=== PATIENT | female | born 1950 | race Caucasian/White ===

== ENCOUNTER 2018-10-26 18:42 | Inpatient (IN) | payer MEDICARE, OTHER ==
[2018-10-26 19:42] LABS: ADD MAN DIFF? NO
[2018-10-26 19:44] LABS: WHITE BLOOD COUNT 11.4 10^3/ul (4.8-10.8)
[2018-10-26 19:44] LABS: BASOPHILS % 0.2 % (0.0-2.0); EOSINOPHILS # 0.2 10^3/ul (0.0-0.5); EOSINOPHILS % 1.3 % (0.0-7.0); HEMATOCRIT 39.4 % (37.0-47.0); LYMPHOCYTES # 2.3 10^3/ul (0.8-2.9); LYMPHOCYTES % 20.4 % (15.0-51.0); MEAN CORPUSCULAR HEMOGLOBIN 28.6 pg (29.0-33.0); MEAN CORPUSCULAR VOLUME 86.6 fl (82.0-101.0); MEAN PLATELET VOLUME 8.8 fl (7.4-10.4); MONOCYTE # 1.1 10^3/ul (0.3-0.9); MONOCYTES % 9.6 % (0.0-11.0); NEUTROPHIL # 7.7 10^3/ul (1.6-7.5); NEUTROPHILS % 68.1 % (39.0-77.0); PLATELET COUNT 292 10^3/UL (140-415); RED BLOOD COUNT 4.55 10^6/ul (4.20-5.40); RED CELL DISTRIBUTION WIDTH 14.6 % (11.5-14.5)
[2018-10-26 19:47] LABS: ADD UMIC YES; UR ASCORBIC ACID NEGATIVE (NEGATIVE); UR BILIRUBIN (Dip) NEGATIVE (NEGATIVE); UR BLOOD (Dip) 1+ mg/dL (NEGATIVE); UR CLARITY CLEAR (CLEAR); UR COLOR STRAW (YELLOW); UR GLUCOSE (Dip) NEGATIVE (NEGATIVE); UR KETONES (Dip) NEGATIVE (NEGATIVE); UR LEUKOCYTE ESTERASE (Dip) 2+ Leu/ul (NEGATIVE); UR NITRITE (Dip) NEGATIVE (NEGATIVE); UR RBC 2 /HPF (0-5); UR SPECIFIC GRAVITY (Dip) 1.004 (1.003-1.030); UR SQUAMOUS EPITHELIAL CELL FEW /HPF (FEW); UR TOTAL PROTEIN (Dip) NEGATIVE (NEGATIVE); UR UROBILINOGEN (Dip) NEGATIVE (NEGATIVE); UR WBC 12 /HPF (0-5)
[2018-10-26 20:03] LABS: ALANINE AMINOTRANSFERASE 24 IU/L (13-69); ALBUMIN 4.2 g/dl (3.3-4.9); ALBUMIN/GLOBULIN RATIO 1.05; ALKALINE PHOSPHATASE 86 IU/L (42-121); ANION GAP 8 (5-13); ASPARTATE AMINO TRANSFERASE 32 IU/L (15-46); BILIRUBIN,INDIRECT 0.7 mg/dl (0-1.1); BILIRUBIN,TOTAL 0.7 mg/dl (0.2-1.3); BLOOD UREA NITROGEN 11 mg/dl (7-20); CALCIUM 9.1 mg/dl (8.4-10.2); CARBON DIOXIDE 29 mmol/L (21-31); CHLORIDE 102 mmol/L (97-110); CREATININE 0.64 mg/dl (0.44-1.00); Estimated GFR > 60 mL/min (>60); GLUCOSE 106 mg/dl (70-220); LIPASE 55 U/L (23-300); POTASSIUM 3.6 mmol/L (3.5-5.1); SODIUM 139 mmol/L (135-144); TOTAL PROTEIN 8.2 g/dl (6.1-8.1)
[2018-10-26] MEDS: SOD CHLORIDE 0.9% 1,000 ML IV (20:09)
[2018-10-26] MEDS: morphine 4 MG/ML VIAL IV (20:10)
[2018-10-26] MEDS: ONDANSETRON 4 MG INJ IV (20:10)
[2018-10-26] MEDS: AMPICILLIN/SULB 3 GM/NS (PMX) 100 ML IVPB (20:10)
[2018-10-26] MEDS ORDERED: ACETAMINOPHEN 325 MG TAB PO (21:00)
[2018-10-26] MEDS ORDERED: ONDANSETRON 4 MG INJ IV (21:00)
[2018-10-26] MEDS: HYDROmorphONE 2 MG/ML SYG IV (21:14)
[2018-10-27] MEDS: DEXTROSE 5%-0.45% NACL 1,000 ML IV ×6 (01:19→23:47)
[2018-10-27] MEDS ORDERED: ALBUTEROL/IPRATROPIUM (NEB) 3 ML AMP HHN (02:00)
[2018-10-27] MEDS ORDERED: ONDANSETRON 4 MG INJ IV (02:00)
[2018-10-27] MEDS: PIPER-TAZO 3.375 GM IV (PMX) 100 ML IVPB ×3 (05:35→22:28)
[2018-10-27] MEDS: NACL 0.9% 3 ML SYG IV (05:35)
[2018-10-27 06:02] LABS: ADD MAN DIFF? NO
[2018-10-27 06:11] LABS: WHITE BLOOD COUNT 8.7 10^3/ul (4.8-10.8)
[2018-10-27 06:11] LABS: BASOPHILS % 0.2 % (0.0-2.0); EOSINOPHILS # 0.2 10^3/ul (0.0-0.5); EOSINOPHILS % 1.7 % (0.0-7.0); HEMATOCRIT 36.3 % (37.0-47.0); HEMOGLOBIN 11.7 g/dl (12.0-16.0); LYMPHOCYTES % 23.3 % (15.0-51.0); MEAN CORPUSCULAR HEMOGLOBIN 28.6 pg (29.0-33.0); MEAN CORPUSCULAR HGB CONC 32.2 g/dl (32.0-37.0); MEAN CORPUSCULAR VOLUME 88.8 fl (82.0-101.0); MEAN PLATELET VOLUME 8.9 fl (7.4-10.4); MONOCYTE # 0.7 10^3/ul (0.3-0.9); MONOCYTES % 8.2 % (0.0-11.0); NEUTROPHIL # 5.8 10^3/ul (1.6-7.5); NEUTROPHILS % 66.1 % (39.0-77.0); PLATELET COUNT 271 10^3/UL (140-415); RED BLOOD COUNT 4.09 10^6/ul (4.20-5.40); RED CELL DISTRIBUTION WIDTH 14.9 % (11.5-14.5)
[2018-10-27] MEDS: PANTOPRAZOLE (EC) 40 MG TAB PO (06:19)
[2018-10-27 06:36] LABS: ALANINE AMINOTRANSFERASE 18 IU/L (13-69); ALBUMIN 3.5 g/dl (3.3-4.9); ALKALINE PHOSPHATASE 62 IU/L (42-121); ANION GAP 4 (5-13); ASPARTATE AMINO TRANSFERASE 24 IU/L (15-46); BILIRUBIN,INDIRECT 0.7 mg/dl (0-1.1); BILIRUBIN,TOTAL 0.7 mg/dl (0.2-1.3); BLOOD UREA NITROGEN 10 mg/dl (7-20); CALCIUM 8.2 mg/dl (8.4-10.2); CARBON DIOXIDE 31 mmol/L (21-31); CHLORIDE 103 mmol/L (97-110); CREATININE 0.51 mg/dl (0.44-1.00); Estimated GFR > 60 mL/min (>60); GLUCOSE 117 mg/dl (70-220); PHOSPHORUS 2.7 mg/dl (2.5-4.9); POTASSIUM 3.5 mmol/L (3.5-5.1); SODIUM 138 mmol/L (135-144)
[2018-10-27] MEDS: ATENOLOL 50 MG TAB PO (08:22)
[2018-10-27] MEDS: FLUTICASONE 0.05% 16 GM NAS SPRAY NASAL ×2 (08:23→21:00)
[2018-10-27] MEDS: metFORMIN 500 MG TAB PO ×2 (08:23→17:48)
[2018-10-27] MEDS: ATORVASTATIN 40 MG TAB PO (08:23)
[2018-10-27] MEDS ORDERED: NON-FORMULARY/PATIENT OWN MED (Omeprazole* 20 MG) PO (09:00)
[2018-10-27] MEDS: LISINOPRIL 20 MG TAB PO (16:52)
[2018-10-27] MEDS: morphine 2 MG INJ IV (20:34)
[2018-10-28 05:17] LABS: ADD MAN DIFF? NO
[2018-10-28 05:22] LABS: WHITE BLOOD COUNT 9.5 10^3/ul (4.8-10.8)
[2018-10-28 05:22] LABS: BASOPHILS % 0.2 % (0.0-2.0); EOSINOPHILS # 0.2 10^3/ul (0.0-0.5); HEMATOCRIT 38.4 % (37.0-47.0); HEMOGLOBIN 12.3 g/dl (12.0-16.0); LYMPHOCYTES # 2.6 10^3/ul (0.8-2.9); LYMPHOCYTES % 27.3 % (15.0-51.0); MEAN CORPUSCULAR HEMOGLOBIN 28.2 pg (29.0-33.0); MEAN CORPUSCULAR VOLUME 88.1 fl (82.0-101.0); MEAN PLATELET VOLUME 8.8 fl (7.4-10.4); MONOCYTES % 10.4 % (0.0-11.0); NEUTROPHIL # 5.7 10^3/ul (1.6-7.5); NEUTROPHILS % 59.7 % (39.0-77.0); PLATELET COUNT 264 10^3/UL (140-415); RED BLOOD COUNT 4.36 10^6/ul (4.20-5.40); RED CELL DISTRIBUTION WIDTH 14.6 % (11.5-14.5)
[2018-10-28] MEDS: PIPER-TAZO 3.375 GM IV (PMX) 100 ML IVPB ×3 (05:53→21:13)
[2018-10-28] MEDS: PANTOPRAZOLE (EC) 40 MG TAB PO (05:53)
[2018-10-28 06:02] LABS: ANION GAP 6 (5-13); BLOOD UREA NITROGEN 8 mg/dl (7-20); CALCIUM 8.4 mg/dl (8.4-10.2); CARBON DIOXIDE 32 mmol/L (21-31); CHLORIDE 101 mmol/L (97-110); CREATININE 0.66 mg/dl (0.44-1.00); Estimated GFR > 60 mL/min (>60); GLUCOSE 109 mg/dl (70-220); PHOSPHORUS 3.2 mg/dl (2.5-4.9); POTASSIUM 3.3 mmol/L (3.5-5.1); SODIUM 139 mmol/L (135-144)
[2018-10-28] MEDS: DEXTROSE 5%-0.45% NACL 1,000 ML IV ×4 (07:59→17:59)
[2018-10-28] MEDS: FLUTICASONE 0.05% 16 GM NAS SPRAY NASAL ×2 (08:23→21:00)
[2018-10-28] MEDS: ATORVASTATIN 40 MG TAB PO (08:23)
[2018-10-28] MEDS: ENOXAPARIN 40 MG/0.4 ML SYG SC (08:24)
[2018-10-28] MEDS: metFORMIN 500 MG TAB PO ×2 (08:27→17:55)
[2018-10-28] MEDS: LISINOPRIL 20 MG TAB PO ×2 (08:27→21:13)
[2018-10-28] MEDS: morphine 2 MG INJ IV (15:41)
[2018-10-28] MEDS: POTASSIUM CHLORIDE 100 ML IVPB (16:36)
[2018-10-28] MEDS: POTASSIUM CHLORIDE (SR) 10 MEQ TAB PO (21:11)
[2018-10-28] MEDS: HYDROCODONE/APAP (5/325) TAB PO (21:59)
[2018-10-29] MEDS: DEXTROSE 5%-0.45% NACL 1,000 ML IV ×3 (00:11→21:37)
[2018-10-29] MEDS: HYDROCODONE/APAP (5/325) TAB PO ×3 (02:48→19:36)
[2018-10-29 05:18] LABS: ADD MAN DIFF? NO
[2018-10-29 05:35] LABS: BASOPHILS % 0.2 % (0.0-2.0); EOSINOPHILS # 0.2 10^3/ul (0.0-0.5); EOSINOPHILS % 2.1 % (0.0-7.0); HEMATOCRIT 37.7 % (37.0-47.0); HEMOGLOBIN 12.4 g/dl (12.0-16.0); LYMPHOCYTES # 2.6 10^3/ul (0.8-2.9); LYMPHOCYTES % 25.7 % (15.0-51.0); MEAN CORPUSCULAR HEMOGLOBIN 28.6 pg (29.0-33.0); MEAN CORPUSCULAR HGB CONC 32.9 g/dl (32.0-37.0); MEAN CORPUSCULAR VOLUME 86.9 fl (82.0-101.0); MEAN PLATELET VOLUME 8.8 fl (7.4-10.4); MONOCYTE # 0.9 10^3/ul (0.3-0.9); MONOCYTES % 8.7 % (0.0-11.0); NEUTROPHIL # 6.3 10^3/ul (1.6-7.5); NEUTROPHILS % 62.9 % (39.0-77.0); PLATELET COUNT 263 10^3/UL (140-415); RED BLOOD COUNT 4.34 10^6/ul (4.20-5.40); RED CELL DISTRIBUTION WIDTH 14.3 % (11.5-14.5)
[2018-10-29 05:55] LABS: ALANINE AMINOTRANSFERASE 20 IU/L (13-69); ALBUMIN 3.5 g/dl (3.3-4.9); ALBUMIN/GLOBULIN RATIO 1.02; ALKALINE PHOSPHATASE 73 IU/L (42-121); AMYLASE 95 U/L (11-123); ANION GAP 5 (5-13); ASPARTATE AMINO TRANSFERASE 21 IU/L (15-46); BILIRUBIN,INDIRECT 0.9 mg/dl (0-1.1); BILIRUBIN,TOTAL 0.9 mg/dl (0.2-1.3); BLOOD UREA NITROGEN 7 mg/dl (7-20); CALCIUM 8.6 mg/dl (8.4-10.2); CARBON DIOXIDE 29 mmol/L (21-31); CHLORIDE 104 mmol/L (97-110); CREATININE 0.55 mg/dl (0.44-1.00); Estimated GFR > 60 mL/min (>60); GLUCOSE 108 mg/dl (70-220); LIPASE 56 U/L (23-300); POTASSIUM 3.8 mmol/L (3.5-5.1); SODIUM 138 mmol/L (135-144); TOTAL PROTEIN 6.9 g/dl (6.1-8.1)
[2018-10-29] MEDS: PIPER-TAZO 3.375 GM IV (PMX) 100 ML IVPB ×3 (06:24→21:36)
[2018-10-29] MEDS: PANTOPRAZOLE (EC) 40 MG TAB PO (06:24)
[2018-10-29] MEDS: ATORVASTATIN 40 MG TAB PO (08:23)
[2018-10-29] MEDS: LISINOPRIL 20 MG TAB PO ×3 (08:24→20:59)
[2018-10-29] MEDS: POTASSIUM CHLORIDE (SR) 10 MEQ TAB PO (08:26)
[2018-10-29] MEDS: ENOXAPARIN 40 MG/0.4 ML SYG SC (08:27)
[2018-10-29] MEDS: metFORMIN 500 MG TAB PO ×2 (08:32→17:27)
[2018-10-29] MEDS: POTASSIUM CHLORIDE (SR) 20 MEQ TAB PO (10:24)
[2018-10-29] MEDS: FLUTICASONE 0.05% 16 GM NAS SPRAY NASAL ×2 (10:38→20:58)
[2018-10-29] MEDS: morphine 2 MG INJ IV (12:51)
[2018-10-29] MEDS: LORAZEPAM 2 MG INJ IV (14:00)
[2018-10-30 04:53] LABS: ADD MAN DIFF? NO
[2018-10-30 04:59] LABS: BASOPHILS % 0.3 % (0.0-2.0); EOSINOPHILS # 0.2 10^3/ul (0.0-0.5); EOSINOPHILS % 2.6 % (0.0-7.0); HEMATOCRIT 39.1 % (37.0-47.0); HEMOGLOBIN 12.9 g/dl (12.0-16.0); LYMPHOCYTES # 1.8 10^3/ul (0.8-2.9); LYMPHOCYTES % 19.8 % (15.0-51.0); MEAN CORPUSCULAR HEMOGLOBIN 28.5 pg (29.0-33.0); MEAN CORPUSCULAR VOLUME 86.5 fl (82.0-101.0); MEAN PLATELET VOLUME 8.6 fl (7.4-10.4); MONOCYTE # 0.7 10^3/ul (0.3-0.9); MONOCYTES % 7.8 % (0.0-11.0); NEUTROPHIL # 6.4 10^3/ul (1.6-7.5); PLATELET COUNT 275 10^3/UL (140-415); RED BLOOD COUNT 4.52 10^6/ul (4.20-5.40); RED CELL DISTRIBUTION WIDTH 14.4 % (11.5-14.5)
[2018-10-30 04:59] LABS: WHITE BLOOD COUNT 9.3 10^3/ul (4.8-10.8)
[2018-10-30 05:23] LABS: MAGNESIUM 1.9 mg/dl (1.7-2.5)
[2018-10-30 05:31] LABS: ANION GAP 8 (5-13); ASPARTATE AMINO TRANSFERASE 21 IU/L (15-46); BLOOD UREA NITROGEN 7 mg/dl (7-20); CALCIUM 8.9 mg/dl (8.4-10.2); CARBON DIOXIDE 27 mmol/L (21-31); CHLORIDE 103 mmol/L (97-110); CREATININE 0.55 mg/dl (0.44-1.00); Estimated GFR > 60 mL/min (>60); GLUCOSE 114 mg/dl (70-220); POTASSIUM 4.1 mmol/L (3.5-5.1); SODIUM 138 mmol/L (135-144)
[2018-10-30 05:32] LABS: ALANINE AMINOTRANSFERASE 19 IU/L (13-69); ALBUMIN 3.8 g/dl (3.3-4.9); ALBUMIN/GLOBULIN RATIO 1.05; ALKALINE PHOSPHATASE 70 IU/L (42-121); AMYLASE 96 U/L (11-123); BILIRUBIN,INDIRECT 0.8 mg/dl (0-1.1); BILIRUBIN,TOTAL 0.8 mg/dl (0.2-1.3); LIPASE 67 U/L (23-300); TOTAL PROTEIN 7.4 g/dl (6.1-8.1)
[2018-10-30] MEDS: PANTOPRAZOLE (EC) 40 MG TAB PO (05:48)
[2018-10-30] MEDS: PIPER-TAZO 3.375 GM IV (PMX) 100 ML IVPB (05:48)
[2018-10-30 07:43] LABS: ERYTHROCYTE SEDIMENTATION RATE 31 mm/Hr (0-30)
[2018-10-30] MEDS: ATORVASTATIN 40 MG TAB PO (08:31)
[2018-10-30] MEDS: metFORMIN 500 MG TAB PO (08:31)
[2018-10-30] MEDS: LISINOPRIL 20 MG TAB PO (08:32)
[2018-10-30] MEDS: ENOXAPARIN 40 MG/0.4 ML SYG SC (08:33)
[2018-10-30] MEDS: HYDROCODONE/APAP (5/325) TAB PO (08:34)
[2018-10-30] MEDS: FLUTICASONE 0.05% 16 GM NAS SPRAY NASAL (08:38)
[2018-10-30 11:01] LABS: CHOLESTEROL 137 mg/dl (100-200)
[2018-10-30 11:01] LABS: CHOL/HDL RATIO 2.9 RATIO; HDL CHOLESTEROL 46 mg/dl (35-98); LDL CHOLESTEROL,CALCULATED 63 mg/dl; TRIGLYCERIDES 140 mg/dl (0-149)
== END 2018-10-30 10:55 | disposition home or self-care (01) | DRG 392 ==
LOC: MS1 20:45 → E/R 18:42 → MS1 10-27 10:31
DX: K57.30 Diverticulosis of large intestine without perforation or abscess without bleeding (principal); K29.70 Gastritis, unspecified, without bleeding; I16.0 Hypertensive urgency; E11.9 Type 2 diabetes mellitus without complications; I10 Essential (primary) hypertension; E78.5 Hyperlipidemia, unspecified; R10.13 Epigastric pain; E55.9 Vitamin D deficiency, unspecified; E87.6 Hypokalemia; R50.9 Fever, unspecified
CPT/HCPCS: 36415; 74176; 74181; 80048; 80053; 80061; 81001; 82150; 82962; 83036; 83690; 83735; 84100; 85025; 85651; 87045; 87081; 96374; 96375; 99285-25

== ENCOUNTER 2018-11-03 20:50 | Inpatient (IN) | payer MEDICARE, OTHER ==
[2018-11-03] MEDS: HYDROmorphONE 1 MG/ML SYG IV (21:36)
[2018-11-03] MEDS: ONDANSETRON 4 MG INJ IV ×2 (21:36→23:32)
[2018-11-03] MEDS: SOD CHLORIDE 0.9% 1,000 ML IV (21:36)
[2018-11-03 21:46] LABS: ADD MAN DIFF? NO
[2018-11-03 21:49] LABS: WHITE BLOOD COUNT 8.6 10^3/ul (4.8-10.8)
[2018-11-03 21:49] LABS: BASOPHILS % 0.3 % (0.0-2.0); EOSINOPHILS # 0.1 10^3/ul (0.0-0.5); EOSINOPHILS % 1.6 % (0.0-7.0); HEMATOCRIT 41.1 % (37.0-47.0); HEMOGLOBIN 13.6 g/dl (12.0-16.0); LYMPHOCYTES # 2.3 10^3/ul (0.8-2.9); LYMPHOCYTES % 26.1 % (15.0-51.0); MEAN CORPUSCULAR HEMOGLOBIN 28.8 pg (29.0-33.0); MEAN CORPUSCULAR HGB CONC 33.1 g/dl (32.0-37.0); MEAN CORPUSCULAR VOLUME 86.9 fl (82.0-101.0); MEAN PLATELET VOLUME 8.6 fl (7.4-10.4); MONOCYTE # 0.7 10^3/ul (0.3-0.9); MONOCYTES % 8.3 % (0.0-11.0); NEUTROPHIL # 5.5 10^3/ul (1.6-7.5); NEUTROPHILS % 63.2 % (39.0-77.0); PLATELET COUNT 298 10^3/UL (140-415); RED BLOOD COUNT 4.73 10^6/ul (4.20-5.40); RED CELL DISTRIBUTION WIDTH 14.6 % (11.5-14.5)
[2018-11-03 21:53] LABS: ADD UMIC YES; UR ASCORBIC ACID NEGATIVE (NEGATIVE); UR BILIRUBIN (Dip) NEGATIVE (NEGATIVE); UR BLOOD (Dip) NEGATIVE (NEGATIVE); UR CLARITY SLIGHTLY CLOUDY (CLEAR); UR COLOR YELLOW (YELLOW); UR GLUCOSE (Dip) NEGATIVE (NEGATIVE); UR KETONES (Dip) NEGATIVE (NEGATIVE); UR LEUKOCYTE ESTERASE (Dip) 3+ Leu/ul (NEGATIVE); UR MUCUS FEW /HPF (NONE SEEN); UR NITRITE (Dip) NEGATIVE (NEGATIVE); UR RBC 3 /HPF (0-5); UR SPECIFIC GRAVITY (Dip) 1.018 (1.003-1.030); UR SQUAMOUS EPITHELIAL CELL MODERATE /HPF (FEW); UR TOTAL PROTEIN (Dip) NEGATIVE (NEGATIVE); UR UROBILINOGEN (Dip) NEGATIVE (NEGATIVE); UR WBC 24 /HPF (0-5)
[2018-11-03 22:08] LABS: ALANINE AMINOTRANSFERASE 39 IU/L (13-69); ALBUMIN 4.3 g/dl (3.3-4.9); ALBUMIN/GLOBULIN RATIO 1.13; ALKALINE PHOSPHATASE 90 IU/L (42-121); ANION GAP 10 (5-13); ASPARTATE AMINO TRANSFERASE 43 IU/L (15-46); BILIRUBIN,INDIRECT 0.8 mg/dl (0-1.1); BILIRUBIN,TOTAL 0.8 mg/dl (0.2-1.3); BLOOD UREA NITROGEN 15 mg/dl (7-20); CALCIUM 9.5 mg/dl (8.4-10.2); CARBON DIOXIDE 28 mmol/L (21-31); CHLORIDE 100 mmol/L (97-110); CREATININE 0.66 mg/dl (0.44-1.00); Estimated GFR > 60 mL/min (>60); GLUCOSE 127 mg/dl (70-220); LIPASE 373 U/L (23-300); POTASSIUM 3.9 mmol/L (3.5-5.1); SODIUM 138 mmol/L (135-144); TOTAL PROTEIN 8.1 g/dl (6.1-8.1)
[2018-11-03] MEDS ORDERED: ACETAMINOPHEN 325 MG TAB PO (23:30)
[2018-11-03] MEDS: HYDROmorphONE 2 MG/ML SYG IV (23:32)
[2018-11-04] MEDS ORDERED: NACL 0.9% 3 ML SYG IV (00:30)
[2018-11-04] MEDS ORDERED: BISACODYL (EC) 5 MG TAB PO (00:30)
[2018-11-04] MEDS ORDERED: DOCUSATE SODIUM 100 MG CAP PO (00:30)
[2018-11-04] MEDS ORDERED: ONDANSETRON 4 MG INJ IV (00:30)
[2018-11-04 01:06] LABS: C-REACTIVE PROTEIN 0.9 mg/dl (0.0-0.9)
[2018-11-04] MEDS: ACCU-CHEK XX (01:54)
[2018-11-04] MEDS ORDERED: GLUCOSE GEL 15 GRAM TUBE PO ×2 (02:00)
[2018-11-04] MEDS ORDERED: GLUCAGON 1 MG INJ IM (02:00)
[2018-11-04] MEDS ORDERED: DEXTROSE 50% 50 ML SYRINGE IV ×2 (02:00)
[2018-11-04] MEDS ORDERED: GLUCOSE GEL 15 GRAM TUBE BUCCAL (02:00)
[2018-11-04 02:22] LABS: ERYTHROCYTE SEDIMENTATION RATE 27 mm/Hr (0-30)
[2018-11-04] MEDS: CEFTRIAXONE 2 GM/50 ML (PMX) 50 ML IVPB (02:24)
[2018-11-04] MEDS ORDERED: ACETAMINOPHEN 500 MG TAB PO (07:30)
[2018-11-04] MEDS: INSULIN ASPART [NOVOLOG] 3 ML PEN SC ×4 (07:35→20:42)
[2018-11-04] MEDS: FLUTICASONE 0.05% 16 GM NAS SPRAY NASAL ×2 (08:47→20:41)
[2018-11-04] MEDS: PANTOPRAZOLE (EC) 40 MG TAB PO (08:48)
[2018-11-04] MEDS: ATENOLOL 50 MG TAB PO (08:48)
[2018-11-04] MEDS: LISINOPRIL 20 MG TAB PO (08:48)
[2018-11-04] MEDS: CHOLECALCIFEROL 1,000 UNIT TAB PO (08:55)
[2018-11-04 16:27] LABS: CREATINE KINASE 36 IU/L (23-200)
[2018-11-04 16:37] LABS: CK INDEX 0.6; CK-MB < 0.22 ng/ml (0.0-2.4)
[2018-11-04 16:40] LABS: TROPONIN-I < 0.012 ng/ml (0.000-0.120)
[2018-11-04 17:32] LABS: LIPASE 129 U/L (23-300)
[2018-11-04 17:32] LABS: AMYLASE 116 U/L (11-123)
[2018-11-04 17:44] LABS: TROPONIN-I < 0.012 ng/ml (0.000-0.120)
[2018-11-04] MEDS: ATORVASTATIN 20 MG TAB PO (20:44)
[2018-11-05] MEDS: CEFTRIAXONE 2 GM/50 ML (PMX) 50 ML IVPB (00:26)
[2018-11-05] MEDS: ACCU-CHEK XX (02:00)
[2018-11-05] MEDS: PANTOPRAZOLE (EC) 40 MG TAB PO (05:05)
[2018-11-05 06:00] LABS: ADD MAN DIFF? NO
[2018-11-05 06:16] LABS: BASOPHILS % 0.3 % (0.0-2.0); EOSINOPHILS # 0.2 10^3/ul (0.0-0.5); EOSINOPHILS % 2.7 % (0.0-7.0); HEMATOCRIT 39.6 % (37.0-47.0); HEMOGLOBIN 12.7 g/dl (12.0-16.0); LYMPHOCYTES # 2.5 10^3/ul (0.8-2.9); LYMPHOCYTES % 35.4 % (15.0-51.0); MEAN CORPUSCULAR HEMOGLOBIN 28.2 pg (29.0-33.0); MEAN CORPUSCULAR HGB CONC 32.1 g/dl (32.0-37.0); MEAN CORPUSCULAR VOLUME 87.8 fl (82.0-101.0); MEAN PLATELET VOLUME 8.7 fl (7.4-10.4); MONOCYTE # 0.6 10^3/ul (0.3-0.9); MONOCYTES % 8.8 % (0.0-11.0); NEUTROPHIL # 3.7 10^3/ul (1.6-7.5); NEUTROPHILS % 52.4 % (39.0-77.0); PLATELET COUNT 287 10^3/UL (140-415); RED BLOOD COUNT 4.51 10^6/ul (4.20-5.40); RED CELL DISTRIBUTION WIDTH 15.1 % (11.5-14.5)
[2018-11-05 06:32] LABS: MAGNESIUM 2.2 mg/dl (1.7-2.5)
[2018-11-05 06:32] LABS: PHOSPHORUS 3.2 mg/dl (2.5-4.9)
[2018-11-05 06:33] LABS: ALANINE AMINOTRANSFERASE 37 IU/L (13-69); ALBUMIN 3.6 g/dl (3.3-4.9); ALBUMIN/GLOBULIN RATIO 1.05; ALKALINE PHOSPHATASE 68 IU/L (42-121); ANION GAP 6 (5-13); ASPARTATE AMINO TRANSFERASE 31 IU/L (15-46); BILIRUBIN,INDIRECT 0.6 mg/dl (0-1.1); BILIRUBIN,TOTAL 0.6 mg/dl (0.2-1.3); BLOOD UREA NITROGEN 9 mg/dl (7-20); CALCIUM 9.2 mg/dl (8.4-10.2); CARBON DIOXIDE 29 mmol/L (21-31); CHLORIDE 104 mmol/L (97-110); CREATININE 0.63 mg/dl (0.44-1.00); Estimated GFR > 60 mL/min (>60); GLUCOSE 93 mg/dl (70-220); POTASSIUM 4.1 mmol/L (3.5-5.1); SODIUM 139 mmol/L (135-144)
[2018-11-05] MEDS: DEXTROSE 5%-0.9% NACL 1,000 ML IV ×2 (06:39→21:13)
[2018-11-05] MEDS: INSULIN ASPART [NOVOLOG] 3 ML PEN SC ×5 (07:35→21:00)
[2018-11-05 08:09] LABS: AMYLASE 78 U/L (11-123); LIPASE 111 U/L (23-300)
[2018-11-05] MEDS: ATENOLOL 50 MG TAB PO (09:00)
[2018-11-05] MEDS: FLUTICASONE 0.05% 16 GM NAS SPRAY NASAL ×2 (09:39→21:08)
[2018-11-05] MEDS: CHOLECALCIFEROL 1,000 UNIT TAB PO (09:39)
[2018-11-05] MEDS: LISINOPRIL 20 MG TAB PO (09:41)
[2018-11-05] MEDS: ACETAMINOPHEN 325 MG TAB PO (13:00)
[2018-11-05 15:00] LABS: FREE T4 (FREE THYROXINE) 1.26 ng/dl (0.78-2.44)
[2018-11-05 15:14] LABS: THYROID STIMULATING HORMONE 0.798 MIU/L (0.465-4.680)
[2018-11-05] MEDS: morphine 2 MG INJ IV (16:49)
[2018-11-05] MEDS ORDERED: hydrALAzine 20 MG INJ IV (18:29)
[2018-11-05] MEDS: ATORVASTATIN 20 MG TAB PO (21:08)
[2018-11-06] MEDS: CEFTRIAXONE 2 GM/50 ML (PMX) 50 ML IVPB (01:13)
[2018-11-06] MEDS: ACCU-CHEK XX (01:16)
[2018-11-06] MEDS: PANTOPRAZOLE (EC) 40 MG TAB PO (05:34)
[2018-11-06 06:42] LABS: ADD MAN DIFF? NO
[2018-11-06 06:50] LABS: BASOPHILS % 0.2 % (0.0-2.0); EOSINOPHILS # 0.1 10^3/ul (0.0-0.5); EOSINOPHILS % 1.6 % (0.0-7.0); HEMATOCRIT 39.3 % (37.0-47.0); HEMOGLOBIN 12.9 g/dl (12.0-16.0); LYMPHOCYTES # 1.8 10^3/ul (0.8-2.9); LYMPHOCYTES % 20.3 % (15.0-51.0); MEAN CORPUSCULAR HEMOGLOBIN 28.6 pg (29.0-33.0); MEAN CORPUSCULAR HGB CONC 32.8 g/dl (32.0-37.0); MEAN CORPUSCULAR VOLUME 87.1 fl (82.0-101.0); MEAN PLATELET VOLUME 8.4 fl (7.4-10.4); MONOCYTE # 0.7 10^3/ul (0.3-0.9); MONOCYTES % 8.1 % (0.0-11.0); NEUTROPHIL # 6.1 10^3/ul (1.6-7.5); NEUTROPHILS % 69.3 % (39.0-77.0); PLATELET COUNT 274 10^3/UL (140-415); RED BLOOD COUNT 4.51 10^6/ul (4.20-5.40); RED CELL DISTRIBUTION WIDTH 14.3 % (11.5-14.5)
[2018-11-06 06:50] LABS: WHITE BLOOD COUNT 8.8 10^3/ul (4.8-10.8)
[2018-11-06 07:14] LABS: MAGNESIUM 1.9 mg/dl (1.7-2.5)
[2018-11-06 07:14] LABS: PHOSPHORUS 3.4 mg/dl (2.5-4.9)
[2018-11-06 07:25] LABS: ALANINE AMINOTRANSFERASE 25 IU/L (13-69); ALBUMIN 3.8 g/dl (3.3-4.9); ALBUMIN/GLOBULIN RATIO 1.08; ALKALINE PHOSPHATASE 63 IU/L (42-121); ANION GAP 8 (5-13); ASPARTATE AMINO TRANSFERASE 28 IU/L (15-46); BILIRUBIN,INDIRECT 0.4 mg/dl (0-1.1); BILIRUBIN,TOTAL 0.4 mg/dl (0.2-1.3); BLOOD UREA NITROGEN 6 mg/dl (7-20); CALCIUM 8.9 mg/dl (8.4-10.2); CARBON DIOXIDE 28 mmol/L (21-31); CHLORIDE 104 mmol/L (97-110); CREATININE 0.55 mg/dl (0.44-1.00); Estimated GFR > 60 mL/min (>60); GLUCOSE 118 mg/dl (70-220); POTASSIUM 3.7 mmol/L (3.5-5.1); SODIUM 140 mmol/L (135-144); TOTAL PROTEIN 7.3 g/dl (6.1-8.1)
[2018-11-06] MEDS: INSULIN ASPART [NOVOLOG] 3 ML PEN SC ×4 (07:55→20:54)
[2018-11-06] MEDS: DEXTROSE 5%-0.9% NACL 1,000 ML IV ×3 (09:40→23:00)
[2018-11-06] MEDS: PROPOFOL 20 ML (10:41)
[2018-11-06] MEDS: hydrALAzine 20 MG INJ (10:59)
[2018-11-06] MEDS ORDERED: ONDANSETRON 4 MG INJ IV (11:00)
[2018-11-06] MEDS: FLUTICASONE 0.05% 16 GM NAS SPRAY NASAL ×2 (12:25→20:51)
[2018-11-06] MEDS: LISINOPRIL 20 MG TAB PO (12:26)
[2018-11-06] MEDS: ATENOLOL 50 MG TAB PO (12:27)
[2018-11-06] MEDS: CHOLECALCIFEROL 1,000 UNIT TAB PO (12:27)
[2018-11-06] MEDS: ATORVASTATIN 20 MG TAB PO (20:51)
[2018-11-07] MEDS: CEFTRIAXONE 2 GM/50 ML (PMX) 50 ML IVPB (01:52)
[2018-11-07] MEDS: ACCU-CHEK XX (03:15)
[2018-11-07] MEDS: PANTOPRAZOLE (EC) 40 MG TAB PO (06:59)
[2018-11-07 07:06] LABS: ADD MAN DIFF? NO
[2018-11-07 07:13] LABS: WHITE BLOOD COUNT 9.3 10^3/ul (4.8-10.8)
[2018-11-07 07:13] LABS: BASOPHILS % 0.3 % (0.0-2.0); EOSINOPHILS # 0.1 10^3/ul (0.0-0.5); EOSINOPHILS % 1.5 % (0.0-7.0); HEMATOCRIT 38.8 % (37.0-47.0); HEMOGLOBIN 12.5 g/dl (12.0-16.0); MEAN CORPUSCULAR HEMOGLOBIN 28.1 pg (29.0-33.0); MEAN CORPUSCULAR HGB CONC 32.2 g/dl (32.0-37.0); MEAN CORPUSCULAR VOLUME 87.2 fl (82.0-101.0); MEAN PLATELET VOLUME 8.6 fl (7.4-10.4); MONOCYTE # 0.8 10^3/ul (0.3-0.9); MONOCYTES % 8.3 % (0.0-11.0); NEUTROPHIL # 6.3 10^3/ul (1.6-7.5); NEUTROPHILS % 67.4 % (39.0-77.0); PLATELET COUNT 284 10^3/UL (140-415); RED BLOOD COUNT 4.45 10^6/ul (4.20-5.40); RED CELL DISTRIBUTION WIDTH 14.6 % (11.5-14.5)
[2018-11-07 07:44] LABS: ALANINE AMINOTRANSFERASE 25 IU/L (13-69); ALBUMIN 3.4 g/dl (3.3-4.9); ALBUMIN/GLOBULIN RATIO 0.94; ALKALINE PHOSPHATASE 74 IU/L (42-121); ANION GAP 6 (5-13); ASPARTATE AMINO TRANSFERASE 24 IU/L (15-46); BILIRUBIN,INDIRECT 0.5 mg/dl (0-1.1); BILIRUBIN,TOTAL 0.5 mg/dl (0.2-1.3); BLOOD UREA NITROGEN 7 mg/dl (7-20); CALCIUM 8.8 mg/dl (8.4-10.2); CARBON DIOXIDE 27 mmol/L (21-31); CHLORIDE 106 mmol/L (97-110); CREATININE 0.52 mg/dl (0.44-1.00); Estimated GFR > 60 mL/min (>60); GLUCOSE 111 mg/dl (70-220); POTASSIUM 3.3 mmol/L (3.5-5.1); SODIUM 139 mmol/L (135-144)
[2018-11-07] MEDS: INSULIN ASPART [NOVOLOG] 3 ML PEN SC ×4 (07:55→21:00)
[2018-11-07] MEDS: CHOLECALCIFEROL 1,000 UNIT TAB PO (09:21)
[2018-11-07] MEDS: DEXTROSE 5%-0.9% NACL 1,000 ML IV ×2 (09:21→12:20)
[2018-11-07] MEDS: ATENOLOL 50 MG TAB PO (09:22)
[2018-11-07] MEDS: LISINOPRIL 20 MG TAB PO (09:23)
[2018-11-07] MEDS: FLUTICASONE 0.05% 16 GM NAS SPRAY NASAL ×2 (09:23→21:52)
[2018-11-07] MEDS: ATORVASTATIN 20 MG TAB PO (21:52)
[2018-11-08] MEDS: CEFTRIAXONE 2 GM/50 ML (PMX) 50 ML IVPB (00:58)
[2018-11-08] MEDS: ACCU-CHEK XX (01:38)
[2018-11-08] MEDS: DEXTROSE 5%-0.9% NACL 1,000 ML IV (01:40)
[2018-11-08] MEDS: PANTOPRAZOLE (EC) 40 MG TAB PO (06:07)
[2018-11-08] MEDS: INSULIN ASPART [NOVOLOG] 3 ML PEN SC ×2 (07:42→11:50)
[2018-11-08] MEDS: FLUTICASONE 0.05% 16 GM NAS SPRAY NASAL (08:08)
[2018-11-08] MEDS: CHOLECALCIFEROL 1,000 UNIT TAB PO (08:08)
[2018-11-08] MEDS: LISINOPRIL 20 MG TAB PO (08:08)
[2018-11-08] MEDS: ATENOLOL 50 MG TAB PO (08:09)
== END 2018-11-08 16:35 | disposition home or self-care (01) | DRG 392 ==
LOC: MS3 23:18 → TEL 11-05 17:08 → E/R 20:50
PROC: 0DB68ZX Excision of Stomach, Via Natural or Artificial Opening Endoscopic, Diagnostic (ICD-10-PCS; principal; 2018-11-06 10:26)
DX: K29.70 Gastritis, unspecified, without bleeding (principal); N39.0 Urinary tract infection, site not specified; K80.20 Calculus of gallbladder without cholecystitis without obstruction; K57.30 Diverticulosis of large intestine without perforation or abscess without bleeding; I10 Essential (primary) hypertension; E11.9 Type 2 diabetes mellitus without complications; K21.9 Gastro-esophageal reflux disease without esophagitis; R00.1 Bradycardia, unspecified; K44.9 Diaphragmatic hernia without obstruction or gangrene
CPT/HCPCS: 36415; 74176; 74181; 80053; 81001; 82150; 82550; 82553; 82962; 83690; 83735; 84100; 84439; 84443; 84484; 85025; 85651; 86140; 87086; 88305; 88312; 93005; 96361; 96374; 96375; 99285-25